=== PATIENT | female | born 1955 | race Caucasian/White ===

== ENCOUNTER → 2021-06-09 14:20 | Outpatient (BNVA) | payer OTHER, SELFPAY | PROVIDERS: Family Provider General Practice; PCP General Practice; Visit Provider Specialist | DX: G43.711 Chronic migraine without aura, intractable, with status migrainosus (principal) | CPT/HCPCS: 99204 ==

== ENCOUNTER → 2021-07-14 14:07 | Outpatient (BNVA) | payer OTHER, SELFPAY | PROVIDERS: Family Provider General Practice; PCP General Practice; Visit Provider Specialist | DX: G43.711 Chronic migraine without aura, intractable, with status migrainosus (principal); R00.1 Bradycardia, unspecified | CPT/HCPCS: 99213; 99214 ==

== ENCOUNTER 2021-08-07 11:07 | Observation (INO) | payer OTHER, SELFPAY ==
--- NOTE | 2021-08-07 11:25 | CTR_ITS ---
PROCEDURE INFORMATION: Exam: CT Head Without Contrast Exam date and time: 08/07/2021 11:25 AM Age: 65 years old Clinical indication: Pain; Headache TECHNIQUE: Imaging protocol: Computed tomography of the head without contrast. Radiation optimization: All CT scans at this facility use at least one of these dose optimization techniques: automated exposure control; mA and/or kV adjustment per patient size (includes targeted exams where dose is matched to clinical indication); or iterative reconstruction. COMPARISON: No relevant prior studies available. RADIATION DOSE METRICS: Total DLP (mGy-cm): 939.67 FINDINGS: Brain: There is volume loss and periventricular low density compatible with chronic small vessel disease changes. There is no acute hemorrhage, edema or mass effect. Basal ganglia calcifications are noted. There are small bifrontal benign hygromas. Cerebral ventricles: There is a cavum septum pellucidum/ cavum septum vergae variant. Paranasal sinuses: Visualized sinuses are unremarkable. No fluid levels. Mastoid air cells: Visualized mastoid air cells are well aerated. Bones/joints: Unremarkable. No acute fracture. Soft tissues: Unremarkable. CT/CT head wo con* [id number] IMPRESSION: No acute intracranial abnormality.
[2021-08-07 11:27] VITALS: BP 116/74; PULSE 80; RESP 16; TEMP 36.6; O2SAT 98; BMI 25.7
[2021-08-07 11:42] LABS: Hematocrit 42.8 % (37.0-47.0); Hemoglobin 14.1 g/dL (11.5-15.3); Mean Corpuscular HGB Conc 32.9 g/dL (30.0-36.0); Mean Corpuscular Hemoglobin 29.7 pg (28.0-34.0); Mean Corpuscular Volume 90.3 fl (81-99); Mean Platelet Volume 9.5 fL (7.4-10.4); Platelet Count 335 10^3/cmm (130-400); Red Blood Count 4.74 10^6/uL (4.1-5.3); Red Cell Distribution Width 11.6 % (12.1-15.1); White Blood Count 11.8 10^3/uL (4.0-10.0)
[2021-08-07 11:53] LABS: Absolute Eosinophils 0.1 10^3/cmm (0.0-0.7); Absolute Segmented Neutrophil 9.8 10/cmm (1.6-7.1); Band Neutrophils Absolute 0.1 10^3/cmm (0.0-1.2); Eosinophils 1 %; Lymphocytes 14 %; Lymphocytes Absolute 1.7 10^3/cmm (1.2-3.4); Monocytes Absolute 0.1 10^3/cmm (0.1-0.6); Segmented Neutrophils 83 %; Total Cells Counted 100 (0-100)
[2021-08-07 11:54] LABS: Absolute Neutrophil 9.9 10^3/cmm (1.4-6.5); Platelet Estimate Normal (Normal)
[2021-08-07 11:57] LABS: INR 0.95 (0.8-1.2)
[2021-08-07 11:58] LABS: Partial Thromboplastin Time 28.1 SECONDS (23.9-36.7)
[2021-08-07 12:09] VITALS: BP 116/74; PULSE 80; RESP 16; TEMP 36.6; O2SAT 98
[2021-08-07 12:14] LABS: Anion Gap 13.7 (5-19); Blood Urea Nitrogen 12 mg/dL (8-23); Calcium 9.3 mg/dL (8.5-10.5); Carbon Dioxide 26 mmol/L (22-29); Chloride 105 mmol/L (98-107); Glomerular Filtration Rate 72.4 mL/min (90-130); Glucose 109 mg/dL (65-115); Osmolality Calculated 290 mOsm/kg (285-295); Potassium 4.7 mmol/L (3.5-5.1); Sodium 140 mmol/L (136-145)
--- NOTE | 2021-08-07 12:23 | CTR_ITS ---
PROCEDURE INFORMATION: Exam: CT Angiography Head With Contrast, Arteriography Exam date and time: 08/07/2021 12:23 PM Age: 65 years old Clinical indication: Headache and vertigo; Additional info: Vertigo central? TECHNIQUE: Imaging protocol: Computed tomography angiography of the head with contrast. Exam focused on the arteries. 3D rendering (Not supervised by radiologist): MIP and/or 3D reconstructed images were created by the technologist. Radiation optimization: All CT scans at this facility use at least one of these dose optimization techniques: automated exposure control; mA and/or kV adjustment per patient size (includes targeted exams where dose is matched to clinical indication); or iterative reconstruction. Contrast material: OMNI 350; Contrast volume: 95 ml; Contrast route: INTRAVENOUS (IV); COMPARISON: CT head wo con* [id number] 08/07/2021 12:51 PM RADIATION DOSE METRICS: Total DLP (mGy-cm): 2203.25 FINDINGS: ANTERIOR CIRCULATION: Right internal carotid artery: Unremarkable. Intracranial segment is patent with no significant stenosis. No aneurysm. Right middle cerebral artery: Unremarkable. No occlusion or significant stenosis. No aneurysm. Right anterior cerebral artery: Unremarkable. No occlusion or significant stenosis. No aneurysm. Left internal carotid artery: Unremarkable. Intracranial segment is patent with no significant stenosis. No aneurysm. Left middle cerebral artery: Unremarkable. No occlusion or significant stenosis. No aneurysm. Left anterior cerebral artery: Unremarkable. No occlusion or significant stenosis. No aneurysm. POSTERIOR CIRCULATION: Right vertebral artery: Unremarkable. No occlusion or significant stenosis. No aneurysm. Left vertebral artery: Unremarkable. No occlusion or significant stenosis. No aneurysm. Basilar artery: Unremarkable. No occlusion or significant stenosis. No aneurysm. Right posterior cerebral artery: Unremarkable. No occlusion or significant stenosis. No aneurysm. Left posterior cerebral artery: Unremarkable. No occlusion or significant stenosis. No aneurysm. 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 Brain: No definite mass, mass effect, or midline shift. Cerebral ventricles: No ventriculomegaly. Bones/joints: Unremarkable. No acute fracture. Soft tissues: Unremarkable. PROCEDURE INFORMATION: Exam: CT Angiography Neck With Contrast Exam date and time: 08/07/2021 12:23 PM Age: 65 years old Clinical indication: Headache and vertigo; Additional info: Vertigo central? TECHNIQUE: Imaging protocol: Computed tomography angiography of the neck with contrast. 3D rendering (Not supervised by radiologist): MIP and/or 3D reconstructed images were created by the technologist. Radiation optimization: All CT scans at this facility use at least one of these dose optimization techniques: automated exposure control; mA and/or kV adjustment per patient size (includes targeted exams where dose is matched to clinical indication); or iterative reconstruction. Contrast material: OMNI 350; Contrast volume: 95 ml; Contrast route: INTRAVENOUS (IV); COMPARISON: CT head wo con* [id number] 08/07/2021 12:51 PM RADIATION DOSE METRICS: Total DLP (mGy-cm): 2203.25 FINDINGS: Right common carotid artery: No stenosis. No dissection or occlusion. Right internal carotid artery: No stenosis of the extracranial segment. No dissection or occlusion. Right external carotid artery: No occlusion or stenosis of the origin. Left common carotid artery: No stenosis. No dissection or occlusion. Left internal carotid artery: No stenosis of the extracranial segment. No dissection or occlusion. Left external carotid artery: No occlusion or stenosis of the origin. Right vertebral artery: No stenosis. No dissection or occlusion. Left vertebral artery: No stenosis. No dissection or occlusion. Soft tissues: Normal. No significant soft tissue swelling. Bones/joints: No acute fracture. CT/CT angio headneck* [id number] IMPRESSION: 1. No large vessel stenosis or occlusion. 2. 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 IMPRESSION: No stenosis or occlusion. REFERENCES: NASCET CRITERIA. The degree of internal carotid artery stenosis is based on NASCET criteria. Normal is no stenosis. Mild is less than 50% stenosis. Moderate is 50-69% stenosis. Severe is 70% to 99% stenosis. Total occlusion is no detectable patent lumen.
--- NOTE | 2021-08-07 12:43 | ED_ITS ---
HPI - General Adult General: Chief complaint: Dizziness Stated complaint: H/A DIZZY N/V Time Seen by Provider: 08/07/21 12:09 History of Present Illness: HPI narrative: Patient is a 65-year-old female with history of migraines followed by Dr. Arellano presenting to the emergency room with vertical sensation since 1500 yesterday afternoon. Patient says that symptoms started suddenly since then every time she tries to get up she has had room spinning sensation. Patient reports the sensation last for 5 minutes is associate with nausea vomiting and diaphoresis. Patient has no associated chest pain, dyspnea, abdominal complaints, focal neurological weakness, diplopia, dysarthria. She noted that her heart rate was beating fast yesterday when this occurred. Onset: 1500 Duration:ongoing Location:home Severity: moderate Review of Systems Narrative: Constitutional: No fever, no chills. HEENT: No vision changes CV: No chest pain, no palpitations PULM: no cough, no dyspnea. GI: No abdominal pain, no N/V/D. : No dysuria MSKEL: No muscle pain SKIN: No new rashes, no lesions. NEURO: No headache, no focal weakness. HEME: No visible bruises PSYCH: Normal mood PFSH ED PFSH: Social History History of recent travel: No Physical Exam Narrative: EXAM NARRATIVE: Head: Atraumatic Eyes: PERRL, conjunctiva without injection ENT: Mucous membrane moist NECK: Supple, ROM intact LUNGS: LCTAB, no crackles/rhonchi CV: RRR ABDOMEN: Soft, nontender in all quadrants EXTREMITY: Normal ROM SKIN: No rash or erythema NEURO: Mental status? Awake, alert, and oriented to self, year, month, location, and situation.? Following simple axial and appendicular commands.? Has appropriate fund of knowledge, comprehension, and insight.? Able to recall and understands pertinent aspects of medical history and current treatment status.? ? Language? Speech is fluent without word-finding difficulties.? Intact naming, expression, visual basic .net developer, and repetition.? ? Cranial nerves? 2,3,4,6: PERRL, EOMI with no nystagmus. 5: Intact sensation to light touch, symmetric? 7: Smile symmetrical, no facial droop.? 8: Hearing grossly intact.? 9,10: Normal palate movement.? 11: Normal strength in trapezius bilaterally 12: Tongue protrudes midline.? ? Motor examination? Normal bulk & tone. Strength as follows (R/L): Delts (5/5), Biceps (5/5), Triceps (5/5), Wrist ext (5/5), hip flexors (5/5), plantarflexors (5/5), dorsiflexors (5/5). Sensation? Light Touch: Grossly intact and equal in upper and lower extremities bilaterally? Romberg: Negative.? Distal joint position sense intact ? Coordination? Kqdwxb-[id number]-nyxy-finger movements intact without dysmetria or past-pointing.? Rapid fingertaps: preserved amplitude without decriment.? No tremor, myoclonus or truncal ataxia.? ? Gait/stance? Steady, normal narrow base gait with appropriate arm swing and turning.? Tandem gait without hesitation or loss of balance. PSYCH: Normal mood and affect Course Vital Signs: Vital signs: Vital Signs Temperature 97.9 F 08/07/21 12:09 Pulse Rate 80 08/07/21 12:09 Respiratory Rate 16 08/07/21 12:09 Blood Pressure 116/74 08/07/21 12:09 Pulse Oximetry 98 08/07/21 12:09 MDM - General Adult MDM Narrative: Medical decision making narrative: 65-year-old female with history of chronic migraine presenting to emergency room with concerns of vertigo symptoms this yesterday. On exam, patient has gait instability significant. +nausea vomiting. Status post IVF, Zofran, meclizine with minimal improvement in nausea and vertigo symptoms. CT brain/CTA head negative for any acute neurological finding. Will be admitted for gait instabilty and vomiting Lab Data: Labs: Lab Results 08/07/21 08/07/21 08/07/21 11:34 11:34 11:34 WBC 11.8 10^3/uL H 10 ^3/uL (4.0-10.0) RBC 4.74 10^6/uL 10^6 /uL (4.1-5.3) Hgb 14.1 g/dL g/dL (11.5-15.3) Hct 42.8 % % (37.0-47.0) MCV 90.3 fl fl (81-99) MCH 29.7 pg pg (28.0-34.0) MCHC 32.9 g/dL g/dL (30.0-36.0) RDW 11.6 % L % (12.1-15.1) Plt Count 335 10^3/cmm 10^3 /cmm (130-400) MPV 9.5 fL fL (7.4-10.4) Total Counted 100 (0-100) Atypical Lymphs % 0.0 % % (0-5) Absolute Neutrophi ls 9.9 10^3/cmm H 10 ^3/cmm (1.4-6.5) Segmented Neutroph ils 83 % % Abs Segm Neuts (Ma n) 9.8 10/cmm H 10/c mm (1.6-7.1) Band Neutrophils 1.0 % % Abs Band Neuts (Ma n) 0.1 10^3/cmm 10^3 /cmm (0.0-1.2) Absolute Lymphocyt es 1.7 10^3/cmm 10^3 /cmm (1.2-3.4) Lymphocytes (Manua l) 14 % % Monocytes (Manual) 1.0 % % Absolute Monocytes 0.1 10^3/cmm 10^3 /cmm (0.1-0.6) Eosinophils (Manua l) 1 % % Absolute Eosinophi ls 0.1 10^3/cmm 10^3 /cmm (0.0-0.7) Basophils (Manual) 0.0 % % Absolute Basophils 0.0 10^3/cmm 10^3 /cmm (0.0-0.2) Platelet Estimate Normal (Normal) PT 13.00 SECONDS SEC ONDS (12.1-14.9) INR 0.95 (0.8-1.2) APTT 28.1 SECONDS SECO NDS (23.9-36.7) Sodium 140 mmol/L mmol/L (136-145) Potassium 4.7 mmol/L mmol/L (3.5-5.1) Chloride 105 mmol/L mmol/L (98-107) Carbon Dioxide 26 mmol/L mmol/L (22-29) Anion Gap 13.7 (5-19) BUN 12 mg/dL mg/dL (8-23) Creatinine 0.8 mg/dL mg/dL (0.5-0.9) GFR Calculation 72.4 mL/min L mL/ min (90-130) Glucose 109 mg/dL mg/dL (65-115) Calculated Osmolal ity 290 mOsm/kg mOsm/ kg (285-295) Calcium 9.3 mg/dL mg/dL (8.5-10.5) Imaging Data^: Other Imaging: Radiologist's impression: [employer] [address]RS Scan ReportSigned Patient: Palma Islasit #: [id number]: 8Acct#:[id number]/Sex: 65 / FADM Date: 08/07/21Loc: ERRoom/Bed:Attending Dr: Ordering Provider/Ordering MD: Sandra Burgess MD Date of Service: 08/07/21 Procedure(s): CT angio headneck* [id number] Accession Number(s): [id number] Report Number: [id number] PROCEDURE INFORMATION: Exam: CT Angiography Head With Contrast, Arteriography Exam date and time: 08/07/2021 12:23 PM Age: 65 years old Clinical indication: Headache and vertigo; Additional info: Vertigo central? TECHNIQUE: Imaging protocol: Computed tomography angiography of the head with contrast. Exam focused on the arteries. 3D rendering (Not supervised by radiologist): MIP and/or 3D reconstructed images were created by the technologist. Radiation optimization: All CT scans at this facility use at least one of these dose optimization techniques: automated exposure control; mA and/or kV adjustment per patient size (includes targeted exams where dose is matched to clinical indication); or iterative reconstruction. Contrast material: OMNI 350; Contrast volume: 95 ml; Contrast route: INTRAVENOUS (IV); COMPARISON: CT head wo con* [id number] 08/07/2021 12:51 PM RADIATION DOSE METRICS: Total DLP (mGy-cm): 2203.25 FINDINGS: ANTERIOR CIRCULATION: Right internal carotid artery: Unremarkable. Intracranial segment is patent with no significant stenosis. No aneurysm. Right middle cerebral artery: Unremarkable. No occlusion or significant stenosis. No aneurysm. Right anterior cerebral artery: Unremarkable. No occlusion or significant stenosis. No aneurysm. Left internal carotid artery: Unremarkable. Intracranial segment is patent with no significant stenosis. No aneurysm. Left middle cerebral artery: Unremarkable. No occlusion or significant stenosis. No aneurysm. Left anterior cerebral artery: Unremarkable. No occlusion or significant stenosis. No aneurysm. POSTERIOR CIRCULATION: Right vertebral artery: Unremarkable. No occlusion or significant stenosis. No aneurysm. Left vertebral artery: Unremarkable. No occlusion or significant stenosis. No aneurysm. Basilar artery: Unremarkable. No occlusion or significant stenosis. No aneurysm. Right posterior cerebral artery: Unremarkable. No occlusion or significant stenosis. No aneurysm. Left posterior cerebral artery: Unremarkable. No occlusion or significant stenosis. No aneurysm. 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 Brain: No definite mass, mass effect, or midline shift. Cerebral ventricles: No ventriculomegaly. Bones/joints: Unremarkable. No acute fracture. Soft tissues: Unremarkable. PROCEDURE INFORMATION: Exam: CT Angiography Neck With Contrast Exam date and time: 08/07/2021 12:23 PM Age: 65 years old Clinical indication: Headache and vertigo; Additional info: Vertigo central? TECHNIQUE: Imaging protocol: Computed tomography angiography of the neck with contrast. 3D rendering (Not supervised by radiologist): MIP and/or 3D reconstructed images were created by the technologist. Radiation optimization: All CT scans at this facility use at least one of these dose optimization techniques: automated exposure control; mA and/or kV adjustment per patient size (includes targeted exams where dose is matched to clinical indication); or iterative reconstruction. Contrast material: OMNI 350; Contrast volume: 95 ml; Contrast route: INTRAVENOUS (IV); COMPARISON: CT head wo con* [id number] 08/07/2021 12:51 PM RADIATION DOSE METRICS: Total DLP (mGy-cm): 2203.25 FINDINGS: Right common carotid artery: No stenosis. No dissection or occlusion. Right internal carotid artery: No stenosis of the extracranial segment. No dissection or occlusion. Right external carotid artery: No occlusion or stenosis of the origin. Left common carotid artery: No stenosis. No dissection or occlusion. Left internal carotid artery: No stenosis of the extracranial segment. No dissection or occlusion. Left external carotid artery: No occlusion or stenosis of the origin. Right vertebral artery: No stenosis. No dissection or occlusion. Left vertebral artery: No stenosis. No dissection or occlusion. Soft tissues: Normal. No significant soft tissue swelling. Bones/joints: No acute fracture. CT/CT angio headneck* [id number] IMPRESSION: 1. No large vessel stenosis or occlusion. 2. 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 IMPRESSION: No stenosis or occlusion. REFERENCES: NASCET CRITERIA. The degree of internal carotid artery stenosis is based on NASCET criteria. Normal is no stenosis. Mild is less than 50% stenosis. Moderate is 50-69% stenosis. Severe is 70% to 99% stenosis. Total occlusion is no detectable patent lumen. 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
[2021-08-07] MEDS: ondansetron 2 mg/ML SDV 2 mL 4 MG IVP ×4 (13:04→22:33)
[2021-08-07] MEDS: iohexol 350 mg/mL 100 mL Btl IV (13:11)
[2021-08-07] MEDS: meclizine 25 mg tablet 50 MG PO (13:19)
[2021-08-07] MEDS: sodium chloride 0.9% 1,000 ML 999 ML IV (13:20)
[2021-08-07 18:00] VITALS: BP 122/78; PULSE 80; RESP 18; TEMP 36.7; O2SAT 98
[2021-08-07 18:10] VITALS: BP 122/78; PULSE 80; RESP 18; TEMP 36.7; O2SAT 98
[2021-08-07 18:26] VITALS: BP 128/74; PULSE 75; RESP 16; TEMP 36.8; O2SAT 94
--- NOTE | 2021-08-07 18:34 | P.HP_ITS ---
Providers/Chief Complaint Admitting Physician: Kofi Higginbotham MD Primary Care Provider: Barry Bee MD Chief Complaint: H/A DIZZY N/V History of Present Illness Palma Islas is a 65 year old female with past medical history of chronic migraine, came in with chief complaint of acute onset of vertigo ,since yesterday afternoon, she describes it as spinning of room whenever she tries to get up and move, each episode lasted around 5 minutes and is associated with nausea vomiting and diaphoresis. Patient is also complaining of one episode of syncope this morning lasting around a minute. Patient denies any , fever, cough, runny nose , ear pain , ear discharge , headache, any weakness in any body part, any abnormal sensations, double vision, difficulty with speech.She has never experinced any such episodes in past Upon arrival in the ER she was worked up for above mentioned complaint: Imaging studies CT head without contrast: No acute intracranial pathology CTA head and neck: No significant occlusion EKG: Review of Systems Const: Denies: fever(s), chills, body aches, change in appetite or diaphoresis Card: Denies: palpitations, edema, swelling of feet/ankles, dyspnea on exertion, orthopnea or leg pain with exertion Resp: Denies: dyspnea, productive cough, wheezing or pain on inspiration GI: Denies: abdominal pain, nausea, vomiting, diarrhea or constipation : Denies: flank pain Musc: Denies: back pain, extremity pain or extremity swelling Neuro: Denies: headache(s), difficulty walking or confusion Medications/Allergies Home Medications Medication Instructions Recorded Confirmed Last Taken Type tramadol 50 mg tablet 50 mg PO Q8H PRN 06/09/21 08/07/21 08/04/21 00:00 History Allergies Allergy/AdvReac Type Severity Reaction Status Date / Time No Known Allergies Allergy Verified 07/14/21 14:15 PFSH Acute PFSH: Social History History of recent travel: No Vitals/I&O/Wt Last Vital Signs Temp 98.0 F 08/07/21 18:10 Pulse 80 08/07/21 18:10 Resp 18 08/07/21 18:10 BP 122/78 08/07/21 18:10 Pulse Ox 98 08/07/21 18:10 08/07/21 08/07/21 08/07/21 06:59 14:59 22:59 Intake Total 1000 / 1000 Balance 1000 / 1000 Weight last 48 hrs Weight 78.925 kg Weight 76.657 kg Physical Exam Const: COMMON NORMALS: patient oriented x3 HENMT: COMMON NORMALS: normocephalic and atraumatic HEAD & SCALP: n ormocephalic and atraumatic Resp: COMMON NORMALS: clear to auscultation bilaterally EFFORT & INSPECTION: Yes symmetric chest movement AUSCULTATION: clear to auscultation bilaterally Cardio: COMMON NORMALS: regular rate, regular rhythm, S1 normal heart sound present, S2 normal heart sound present, No gallops present (Cardio), No murmurs present (Cardio), No rub (Cardio) and Peripheral pulses 2+ throughout RATE: regular rate RHYTHM: regular rhythm HEART SOUNDS: S1 normal heart sound present and S2 normal heart sound present PERIPHERAL PULSES: Peripheral pulses 2+ throughout GI: COMMON NORMALS: Normal to inspection, nondistended, normoactive bowel sounds present, Soft to palpation, non-tender, No hepatosplenomegaly present and no masses AUSCULTATION: Yes normoactive bowel sounds PALPATION: Yes Soft to palpation and Yes No hepatosplenomegaly present RECTAL EXAM: deferred Extremity: COMMON NORMALS: no clubbing, cyanosis or edema and no pedal edema Neuro: COMMON NORMALS: patient oriented x3 Data : 08/07/21 11:34 08/07/21 11:34 A&P Assessment and plan (1) Vertigo: Status: Acute (2) Syncope: Status: Acute (3) Unstable gait: Status: Acute (4) Vomiting: Status: Acute (5) Chronic migraine without aura, intractable, with status migrainosus: Status: Acute Additional A&P Information 65 year old female with past medical history of chronic migraine, came in with chief complaint of acute onset of vertigo ,since yesterday afternoon, she describes it as spinning of room whenever she tries to get up and move, each episode lasted around 5 minutes and is associated with nausea vomiting and diaphoresis. Patient denies any , fever, cough, runny nose , ear pain , ear discharge , headache, any weakness in any body part, any abnormal sensations, double vision, difficulty with speech, no hearing loss,ringing in ears. #Symptomatic vertigo: If symptoms persist will consider MRI brain to rule out any neurological etiology Meclizine 25 mg p.o. 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
[2021-08-07] MEDS: enoxaparin 40 mg/0.4 mL Syringe SUBCUT (18:41)
[2021-08-07] MEDS: sodium chloride 0.9% 1,000 ML 75 ML IV (18:42)
--- NOTE | 2021-08-07 19:14 | ECG_ITS ---
[facility] Test Date: 2021-08-08 Pat Name: Palma Islas Department: Room: 252 Gender: Female Machine Trimmer: : 1955 Requested By: Kofi Higginbotham Order Number: [id number] Graham MD: Dinesh Carter M.D. Measurements Intervals [place] Rate: 73 P: 48 [place]: 155 QRS: 25 QRSD: 92 T: 30 QT: 401 QTc: 444 Interpretive Statements SINUS RHYTHM No previous ECG available for comparison Electronically Signed On 08-08-2021 20:51:05 [employer]IL[employer] MECHANIC by Diensh Carter M.D. [id number]
[2021-08-07 20:00] VITALS: BP 146/79; PULSE 83; RESP 17; TEMP 37.3; O2SAT 94
[2021-08-07] MEDS: meclizine 25 mg tablet PO (20:31)
[2021-08-08] VITALS: BP 103/64; PULSE 88; RESP 17; TEMP 37.4; O2SAT 97
--- NOTE | 2021-08-08 | USCV_ITS ---
Palma Islas Age: 65 Gender: F : 1955 Exam Date: 08/08/2021 05:46 Ordering Phys: Kofi Higginbotham MD Technologist: Bettye Shanks [place] [facility] [place]: VERTIGO AND SYNCOPE BP: 103 / 64 HR: 62 Rhythm: Sinus Technical Quality: Fair MEASUREMENTS (Male / Female) Normal Values 2D ECHO LV Diastolic Diameter PLAX 4.6 cm 4.2 - 5.9 / 3.9 - 5.3 cm LV Systolic Diameter PLAX 3.2 cm LV Chamber Size 3.8 cm IVS Diastolic Thickness 1.3 cm 0.6 - 1.0 / 0.6 - 0.9 cm IVS Systolic Thickness 1.3 cm LVPW Diastolic Thickness 1.1 cm 0.6 - 1.0 / 0.6 - 0.9 cm LVPW Systolic Thickness 1.6 cm RV Chamber Size 2.4 cm LVOT Diameter 2.0 cm LV Ejection Fraction 2D Teich 58.3 % LV Ejection Fraction MOD 2C 62.8 % LV Ejection Fraction 2C AL 61.8 % LA Diameter 3.3 cm LA Width 3.2 cm LA Height 4.4 cm RA Width 3.3 cm RA Height 3.2 cm Aorta at Sinotubular Diameter 3.3 cm M-MODE Aortic Annulus Diameter 3.1 cm LA Ao Ratio MM 1.2 MV E Point Septal Separation 0.7 cm DOPPLER AV Peak Velocity 119.0 cm/s LVOT Peak Velocity 82.0 cm/s AV Area Cont Eq vti 2.2 cm squared AV Area Cont Eq pk 2.2 cm squared MV Area PHT 4.3 cm squared Mitral E to A Ratio 1.1 MV E' Velocity 52.0 cm/s Mitral E to MV E' Ratio 7.6 Mitral E to LV E' Lateral Ratio 7.5 Mitral E to LV E' Septal Ratio 7.7 TR Peak Velocity 198.6 cm/s TR Peak Gradient 15.8 mmHg TR Mean Velocity 154.3 cm/s TR Mean Gradient 10.4 mmHg TR Velocity Time Integral 63.9 cm TV Peak E Velocity 67.0 cm/s Right Atrial Pressure 3.0 mmHg Pulmonary Artery Systolic Pressu 18.8 mmHg PV Peak Velocity 45.0 cm/s RV Acceleration Time 0.2 s RV Ejection Time 0.4 s RV AcT/ET 0.4 FINDINGS Left Ventricle Normal left ventricular size and systolic function, EF 59 %. No regional wall motion abnormalities. Right Ventricle The right ventricle is normal in size and function. Right Atrium The right atrium is normal in size. Left Atrium The left atrium is normal in size. Mitral Valve Mild-moderate mitral valve regurgitation. Aortic Valve No gross abnormalities noted Tricuspid Valve Trace to mild tricuspid valve regurgitation. Normal pulmonary artery peak systolic pressure Pulmonic Valve No gross abnormalities noted Pericardium Normal pericardium without effusion. Aorta Normal ascending aorta dimension. CONCLUSIONS Normal left ventricular size and systolic function, EF 59 %. No regional wall motion abnormalities. Mild-moderate mitral valve regurgitation. Trace to mild tricuspid valve regurgitation. Normal pulmonary artery peak systolic pressure. There is no pericardial effusion. There are no intracardiac masses. No previous study is available for comparison. Dr Dinesh Carter MD FAC (Electronically Signed) Final Date: 08 August 2021 14:13 S
[2021-08-08] MEDS: ondansetron 2 mg/ML SDV 2 mL 4 MG IVP ×3 (02:17→10:44)
[2021-08-08 04:00] VITALS: BP 116/68; PULSE 81; RESP 17; TEMP 37.8; O2SAT 94
[2021-08-08 06:07] LABS: Basophils % 0.3 %; Eosinophils % 0.7 %; Hematocrit 36.4 % (37.0-47.0); Hemoglobin 11.8 g/dL (11.5-15.3); Lymphocytes # 2.3 10^3/uL (0.8-4.8); Lymphocytes % 39.6 %; Mean Corpuscular HGB Conc 32.4 g/dL (30.0-36.0); Mean Corpuscular Hemoglobin 29.9 pg (28.0-34.0); Mean Corpuscular Volume 92.2 fl (81-99); Mean Platelet Volume 10.4 fL (7.4-10.4); Monocytes # 0.5 10^3/uL (0.2-0.9); Neutrophils # 2.89 10^3/uL (1.8-7.7); Neutrophils % 50.2 %; Nucleated Red Blood Cells % 0 %; Platelet Count 300 10^3/cmm (130-400); Red Blood Count 3.95 10^6/uL (4.1-5.3); Red Cell Distribution Width 11.6 % (12.1-15.1); White Blood Count 5.8 10^3/uL (4.0-10.0)
[2021-08-08 06:32] LABS: Alanine Aminotransferase 9 U/L (0-33); Albumin Level 3.7 g/dL (3.5-5.2); Alkaline Phosphatase 64 IU/L (35-105); Anion Gap 13.8 (5-19); Aspartate Amino Transferase 10 U/L (0-32); Blood Urea Nitrogen 12 mg/dL (8-23); Calcium 8.1 mg/dL (8.5-10.5); Carbon Dioxide 22 mmol/L (22-29); Chloride 109 mmol/L (98-107); Globulin 1.7 g/dL (1.3-4.6); Glomerular Filtration Rate 84.5 mL/min (90-130); Glucose 78 mg/dL (65-115); Osmolality Calculated 291 mOsm/kg (285-295); Potassium 3.8 mmol/L (3.5-5.1); Sodium 141 mmol/L (136-145); Total Bilirubin 0.3 mg/dL (0.15-1.2); Total Protein 5.4 g/dL (6.6-8.7)
[2021-08-08 08:00] VITALS: BP 113/76; BP 123/77; BP 124/72; PULSE 82; PULSE 84; PULSE 96
[2021-08-08] MEDS: sodium chloride 0.9% 1,000 ML 75 ML IV (08:04)
[2021-08-08] MEDS: meclizine 25 mg tablet PO (08:04)
--- NOTE | 2021-08-08 08:22 | PC.NURSE ---
commercial loan underwriter entered room to do MRI screening. patient refusing MRI. She said no one had even checked me for an inner ear infection. Dr Calivllo notified.
--- NOTE | 2021-08-08 09:39 | PC.CHAP ---
Pastoral Care Encounter/Spiritual Assessment Type of Contact [x] Declined teacher's assistant visit [] Patient/Family/Request visit [] Outpatient visit [] Follow-up visit [] Physician referral [] Code/Alert [x] Routine visit [] Staff referral [] Actively dying [] Patient sleeping [] Family support [] [] Out of room [] Palliative care [] [] Receiving care in room [] Pre-surgical visit [] Trauma [] Long length of stay [] ICU visit [] Other: Relational/Emotional Strength [x] Patient feels connected with others/family/visitors/staff [] Distress [] Loneliness/isolation [] Abandonment Spirituality of Patient [] Person of Kaitlyn [] Attends Anglican of their Kaitlyn [] Believes in Prayer [] Reads Bible or Amish materials [] There are Spiritual issues to be addressed First Aid Instructor Interventions [] Prayer [] Active listening [] Non-anxious presence [] Spiritual/emotional support [] Crisis/trauma care [] Spiritual counseling [] Bereavement support [] Provided bereavement packet [] Provided Bible/devotional materials [] Provided toy/stuffed animal, coloring book to patient or family member [] Provided Communion [] Anointing/[place] [] Salvation [x] Completed spiritual assessment [] Other: Impact on Illness or Injury [] Angry [] Fearful [] Anxious [] Often cries [] Exhaustion [] Unable to work [] Unable to attend uatsdin [] Unable to walk/stand [] Unable to read [] Unable to drive [] Unable to eat/drink [] Unable to sleep [] Unable to be with family [] Patient intubated [] Other: Summary Time spent with patient
[2021-08-08 12:00] VITALS: BP 134/85; BP 147/82; BP 160/79; PULSE 68; PULSE 77; PULSE 84
[2021-08-08 13:43] LABS: Protein Urine Neg (Negative); Specific Gravity, Urine 1.015 (1.005-1.030); Urine Appearance SL Hazy (CLEAR); Urine Color Straw (Yellow); pH Urine 6.5 (5-7)
[2021-08-08 13:44] LABS: Add Urine Microscopic? YES; Bacteria Urine TRACE /hpf; Bilirubin Urine Neg (Negative); Blood Urine 2+ (Negative); Glucose Urine UA Norm (Normal); Ketones Urine Negative (Negative); Leukocyte Esterase Urine Trace (Negative); Nitrate Urine Negative (Negative); Urobilinogen Urine Norm (Negative)
[2021-08-08 13:45] LABS: Add Urine Culture? No
--- NOTE | 2021-08-08 14:25 | PC.NURSE ---
moved patient from 252-1 to 255-1.
--- NOTE | 2021-08-08 14:39 | PM.DCS ---
Discharge Providers Date of Admission: 08/07/21 13:39 Date of Discharge: August 08, 2021 Attending Provider at Admission: Kofi Higginbotham MD Attending Provider at Discharge: Ben Calvillo MD Primary Care Provider: Barry Bee MD Diagnoses at Discharge Discharge Diagnosis (1) Vertigo: Status: Acute (2) Syncope: Status: Acute (3) Unstable gait: Status: Acute (4) Vomiting: Status: Acute (5) Chronic migraine without aura, intractable, with status migrainosus: Status: Acute Reason for Visit Reason for Visit: H/A DIZZY N/V Hospital Course Hospital Course This is a 65-year-old female with a past medical history of chronic migraines, who presents to [facility] due to vertigo Patient was admitted to [facility] for vertigo, no focal neurologic deficits, no chest pain complaints, no palpitations, CT of the head no acute intracranial pathology, CTA of the head and neck no significant occlusion, EKG shows sinus rhythm, echocardiogram showed an EF of 59%, no regional wall motion abnormalities, mild to moderate mitral valve regurg. Patient symptomatology improved with Saba maneuver and meclizine. Likely patient symptomatology was related to benign positional vertigo. She saw physical therapy as inpatient, was taught maneuvers to help with symptomatology. Will be discharged on instructions for maneuvers, meclizine, and follow-up with primary care provider as outpatient. If her symptomatology were to persist, follow-up with neurology and or consider MRI of the brain. Physical Exam Const: COMMON NORMALS: no acute distress and patient oriented x3 Resp: COMMON NORMALS: normal respiratory effort, No retractions, No use of accessory muscles and clear to auscultation bilaterally AUSCULTATION: clear to auscultation bilaterally Cardio: COMMON NORMALS: regular rate, regular rhythm, S1 normal heart sound present and S2 normal heart sound present RATE: regular rate RHYTHM: regular rhythm HEART SOUNDS: S1 normal heart sound present and S2 normal heart sound present GI: COMMON NORMALS: Normal to inspection, nondistended, normoactive bowel sounds present and Soft to palpation PALPATION: Yes Soft to palpation Extremity: COMMON NORMALS: no pedal edema Neuro: COMMON NORMALS: patient oriented x3 Psych: COMMON NORMALS: mental status grossly normal Discharge Data Data Completed and Pending: Completed Studies During Hospitalization Category Date Time Status CT angio headneck * [id number] Urge nt Cat Scan 08/07/21 12:[address] head wo con* [id number] Urgent Cat Scan 08/07/21 11:25 Completed CV. echo complete * [id number] Routine Ultrasound 08/08/21 Completed Pending at discharge Category Date Time Status Urinalysis Routin e Lab 08/08/21 05:55 Ordered Labs from last 24 hours 08/08/21 08/08/21 08/08/21 Unknown 04:20 04:20 WBC 5.8 RBC 3.95 L Hgb 11.8 Hct 36.4 L MCV 92.2 MCH 29.9 MCHC 32.4 RDW 11.6 L Plt Count 300 MPV 10.4 Neut % (Auto) 50.2 Lymph % (Auto) 39.6 [place] % (Auto) 9.0 Eos % (Auto) 0.7 Baso % (Auto) 0.3 Neut # (Auto) 2.89 Lymph # (Auto) 2.3 [place] # (Auto) 0.5 Eos # (Auto) 0.0 Baso # (Auto) 0.0 Nucleated RBC % (a uto) 0 Nucleated RBCs # 0.0 Sodium 141 Potassium 3.8 Chloride 109 H Carbon Dioxide 22 Anion Gap 13.8 BUN 12 Creatinine 0.7 GFR Calculation 84.5 L Glucose 78 Calculated Osmolal ity 291 Calcium 8.1 L Magnesium 2.0 Total Bilirubin 0.3 AST 10 ALT 9 Alkaline Phosphata se 64 Total Protein 5.4 L Albumin 3.7 Globulin 1.7 Urine Color Straw Urine Appearance Sl hazy Urine pH 6.5 Ur Specific Gravit y 1.015 Urine Protein Neg Urine Glucose (UA) Norm Urine Ketones Negative Urine Blood 2+ H Urine Nitrate Negative Urine Bilirubin Neg Urine Urobilinogen Norm Ur Leukocyte Vivienne ase Trace H Urine RBC 5-10 H Urine WBC 5-10 H Ur Squamous Epith Cells 5-10 H Amorphous Sediment Not Reportable Urine Bacteria Trace Vitals: Last Vital Signs Temp 100.1 F H 08/08/21 04:00 Pulse 84 08/08/21 12:00 Resp 17 08/08/21 04:00 BP 134/85 08/08/21 12:00 Pulse Ox 94 08/08/21 04:00 Discharge Plan Discharge Patient Disposition: Home Condition: Stable Prescriptions: New meclizine 25 mg Tablet 25 mg PO TID PRN (Reason: dizzyness) 15 Days Qty: 45 RF: 0 Continued tramadol 50 mg tablet 50 mg PO Q8H PRN (Reason: Pain) RF: 0 Discharge Orders: Discharge Order (Routine); Ordered 08/08/21 Ordered By: Ben Calvillo Referrals: Barry Bee MD [Primary Care Provider] - Discharge Diet: Cardiac Discharge Activity: Resume usual activity Patient Instructions: Opioid Safety Activity Restrictions/Additional Instructions: -Please continue maneuvers shown to you for benign positional vertigo, meclizine as needed for vertigo please do not drive or operate heavy machinery while taking meclizine -Follow-up with primary care provider in 2 weeks -If you continue to have lightheadedness or dizziness or vertigo please follow-up with primary care provider for consideration of MRI Discharge Attestations Time Spent in Discharge Care*: less than 30 min Quality Metrics Clinical Quality Measures During this hospital stay, did patient experience: None Coding Level of Care Code Acute Chg FW DC note Diagnoses Vertigo R42 Syncope R55 Unstable gait R26.81 Vomiting R11.10 Chronic migraine without aura, intractable, with status migrainosus G43.711
--- NOTE | 2021-08-08 15:22 | PC.NURSE ---
discharge instructions given to patient and patient verbalized understanding of instructions. patient taken to private vehicle via wheelchair by appeals writer.
[2021-08-08 15:23] VITALS: BP 116/68; PULSE 81; RESP 17; TEMP 37.8; O2SAT 94
== END 2021-08-08 15:24 | disposition home or self-care (01) ==
LOC: ER 12:43 → MEDSURG 18:21
PROVIDERS: Admitting Provider Internal Medicine; Emergency Provider Emergency Medicine; PCP General Practice; Visit Provider Family Medicine
DX: H81.10 Benign paroxysmal vertigo, unspecified ear (principal); R55 Syncope and collapse; R26.81 Unsteadiness on feet; R11.10 Vomiting, unspecified; G43.711 Chronic migraine without aura, intractable, with status migrainosus
CPT/HCPCS: 36415; 70450; 70496; 70498; 80048; 80053; 81001; 83735; 85007; 85025; 85027; 85610; 85730; 93005; 93306; 96361; 96372; 96374; 96376; 97110; 99285; G0378; J1650; J2405; J7030; J8597; Q9967

== ENCOUNTER → 2023-08-15 13:51 | Outpatient (BNVA) | payer MEDICARE, OTHER, SELFPAY | PROVIDERS: PCP General Practice; Visit Provider Nurse Practitioner Family | DX: Z00.00 Encounter for general adult medical examination without abnormal findings (principal); G45.0 Vertebro-basilar artery syndrome; J30.2 Other seasonal allergic rhinitis; Z71.89 Other specified counseling | CPT/HCPCS: 80053; 80061; 85025 ==

== ENCOUNTER 2023-10-08 12:44 | Outpatient (CLI) | payer MEDICARE, OTHER, SELFPAY ==
--- NOTE | 2023-10-08 12:59 | MM_ITS ---
WS: [id number] BILATERAL 3D TOMOSYNTHESIS DIGITAL SCREENING MAMMOGRAPHY WITH CAD CLINICAL INFORMATION: screening HISTORY: Screening mammogram. No current complaints. COMPARISON: 2018 TECHNIQUE: Bilateral CC and MLO views. FINDINGS: Bilateral breast implants appear intact with capsular calcifications unchanged. Scattered fibroglandular densities bilaterally. No suspicious focal mass, asymmetry, calcifications, or architectural distortion. No evidence of malignancy. Vascular calcification. IMPRESSION: MM/[place] [id number] BI-RADS: 2-Benign FOLLOW UP: 1 Year Follow-up Recommend return to annual screening mammography.
--- NOTE | 2023-10-08 13:00 | XR_ITS ---
WS: [id number] SCREENING DEXA SCAN [employer] CLINICAL INFORMATION: screening COMPARISON: None. FINDINGS: The L1-L4 bone mineral density measures 0.964 g/cm2. This corresponds to a T score score of -1.8 and Z score of -0.8. Left femoral neck bone mineral density measures 0.829 g/cm2. This corresponds to a T score of -1.4 an d Z score of -0.6. Right femoral neck bone mineral density measures 0.848 g/cm2. This corresponds to a T score -1.3of an d Z score of -0.5. Mean femoral neck bone mineral density measures 0.839 g/cm2. This corresponds to a T score of -1.3 an d Z score of -0.6. IMPRESSION: Osteopenia lumbar spine. Osteopenia femoral necks. Patient's FRAX calculated 10 year probability for major osteoporotic fracture is 9.7% and osteoporoti c hip fracture is 1.3%.
== END 2023-10-08 12:45 | disposition home or self-care (01) ==
LOC: RAD 12:44
PROVIDERS: PCP General Practice; Visit Provider Nurse Practitioner Family
DX: Z12.31 Encounter for screening mammogram for malignant neoplasm of breast (principal); Z00.00 Encounter for general adult medical examination without abnormal findings; Z13.820 Encounter for screening for osteoporosis; M19.90 Unspecified osteoarthritis, unspecified site
CPT/HCPCS: 77063; 77067; 77080

== ENCOUNTER → 2023-10-17 14:39 | Outpatient (BNVA) | payer MEDICARE, OTHER, SELFPAY | PROVIDERS: PCP General Practice; Visit Provider Nurse Practitioner Family | DX: J18.9 Pneumonia, unspecified organism (principal); J40 Bronchitis, not specified as acute or chronic | CPT/HCPCS: 71046; 85025 ==

== ENCOUNTER → 2023-10-19 15:12 | Outpatient (BNVA) | payer MEDICARE, OTHER, SELFPAY | PROVIDERS: PCP General Practice; Visit Provider Nurse Practitioner Family | DX: R06.02 Shortness of breath (principal) | CPT/HCPCS: 71046 ==

== ENCOUNTER → 2023-11-13 07:47 | Outpatient (BNVA) | payer MEDICARE, OTHER, SELFPAY | PROVIDERS: PCP General Practice; Visit Provider Specialist | DX: G43.711 Chronic migraine without aura, intractable, with status migrainosus (principal) | CPT/HCPCS: 99213 ==

== ENCOUNTER → 2023-12-13 09:45 | Outpatient (BNVA) | payer MEDICARE, OTHER, SELFPAY | PROVIDERS: PCP General Practice; Visit Provider General Practice | DX: M17.11 Unilateral primary osteoarthritis, right knee (principal) | CPT/HCPCS: 73562 ==

== ENCOUNTER 2023-12-21 10:57 | Outpatient (CLI) | payer MEDICARE, OTHER, SELFPAY ==
--- NOTE | 2023-12-21 11:00 | CT_ITS ---
WS: [id number] CT chest w con* [id number] HISTORY: Shortness of breath, abnormal x-ray, pulmonary nodule TECHNIQUE: Axial imaging performed through the thorax. Coronal and sagittal reformats are submitted. All CT scans at [facility] use at least one of these dose optimization techniques: automated exposure control; mA and/or kV adjustment per patient size (includes targeted exams where dose is mat ched to clinical indication); or iterative reconstruction. CONTRAST: Omnipaque 350; 100 mL IV. DLP: 366.28 mGy.cm COMPARISON: Chest radiograph 10/19/2023 Lungs and central airway: No pulmonary mass or nodule. There are a few scattered very small areas of groundglass attenuation in the RIGHT upper and RIGHT lower lobe. Benign granuloma LEFT upper lobe. Pleura: Normal. No pleural effusion. Heart and pericardium: Normal size heart with no pericardial effusion. Mediastinum and brittanie: No mediastinum or hilar adenopathy. Vessels: Atherosclerosis aorta. Normal pulmonary artery. Chest wall and lower neck: Bilateral breast implants. Upper abdomen: Small hiatal hernia. No adrenal mass. Osseous structures: Thoracolumbar spondylosis. IMPRESSION: 1. No pulmonary mass or pneumonia. 2. Subsegmental areas of groundglass attenuation in the RIGHT upper and RIGHT lower lobes. Most like ly due to pneumonitis. 3. No mediastinal or hilar adenopathy. 4. Bilateral breast implants.
[2023-12-21 11:26] LABS: Blood Urea Nitrogen 9 mg/dL (8-23); Glomerular Filtration Rate 55.5 mL/min (90-130)
[2023-12-21] MEDS: iohexol 350 mg/mL 500 mL Btl (per mL) IV (11:35)
== END 2023-12-21 10:58 | disposition home or self-care (01) ==
LOC: RAD 10:57
PROVIDERS: PCP General Practice; Visit Provider Nurse Practitioner Family
DX: R91.1 Solitary pulmonary nodule (principal); R06.02 Shortness of breath; R93.89 Abnormal findings on diagnostic imaging of other specified body structures
CPT/HCPCS: 71260; 82565; 84520; Q9967

== ENCOUNTER → 2024-01-10 10:26 | Outpatient (BNVA) | payer MEDICARE, OTHER, SELFPAY | PROVIDERS: PCP General Practice; Visit Provider Specialist | DX: G43.711 Chronic migraine without aura, intractable, with status migrainosus (principal) | CPT/HCPCS: 64615; 99214; J0585 ==

== ENCOUNTER → 2024-02-20 15:34 | Outpatient (BNVA) | payer MEDICARE, OTHER, SELFPAY | PROVIDERS: PCP General Practice; Visit Provider Specialist | DX: G45.9 Transient cerebral ischemic attack, unspecified (principal); R03.0 Elevated blood-pressure reading, without diagnosis of hypertension; G24.3 Spasmodic torticollis; G43.711 Chronic migraine without aura, intractable, with status migrainosus; M54.2 Cervicalgia | CPT/HCPCS: 99214; 99215 ==

== ENCOUNTER 2024-03-28 13:01 | Outpatient (CLI) | payer MEDICARE, OTHER, SELFPAY ==
--- NOTE | 2024-03-28 13:00 | MR_ITS ---
WS: [id number] MRI BRAIN WITHOUT CONTRAST HISTORY: G45.9 - Transient cerebral ischemic attack, unspecified COMPARISON: None available. TECHNIQUE: Diffusion imaging, multiplanar T1, T2 and FLAIR imaging obtained. Normal diffusion imaging. There are a few scattered T2 and FLAIR signal hyperintensities within this supratentorial white matter from small vessel disease. No prior infarct. No significant volume loss o r atrophy. Normal hippocampal formation. No remote or acute infarcts are volume loss. Ventricles and extra-axial spaces are normal. 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 No inferior displacement of cerebellar tonsils. The sella turcica and pituitary gland are unremarkabl e. Dural venous sinuses and [place] demonstrate no abnormality on this unenhanced studies. Paranasal sinuses: Clear. Mastoid air cells: Normal. Calvarium and scalp: Intact. MR/MR head wo con* [id number] IMPRESSION: 1. No diffusion abnormality large territory infarct. 2. No significant volume loss. 3. Normal hippocampal formations. 4. Mild small vessel ischemic changes.
--- NOTE | 2024-03-28 13:45 | MR_ITS ---
WS: [id number] MRA ANGIOGRAPHY [place] HISTORY: R51.9 - Headache, unspecified COMPARISON: 08/07/2021 CTA TECHNIQUE: 3-D MR angiography is performed of the [place]. All images are reviewed including source images. Distal vertebral and basilar arteries are intact with no significant stenosis or plaque. LEFT vertebr al artery is dominant. Posterior cerebral arteries are normal course and caliber. Posterior communica ting arteries are both patent but small caliber. Intracranial portion of the internal carotid arteries are normal course and caliber. No significant a therosclerosis, stenosis or aneurysm identified. Middle and anterior cerebral arteries are both paten t with no significant disease. Anterior communicating artery is also normal. 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 MR/MR angio head wo con [id number] IMPRESSION: Normal MRA [place].
--- NOTE | 2024-03-28 14:00 | MR_ITS ---
WS: [id number] MRI CERVICAL SPINE NONCONTRAST HISTORY: G24.3 - Spasmodic torticollis COMPARISON: None available. Technique: Multiplanar, multisequence noncontrast imaging of the cervical spine. Straightening of the normal cervical lordosis with slight reversal at C5. Disc spaces are mildly narr owed and desiccated. Signal within the cervical cord is normal. Visualized posterior fossa is unremarkable. Craniocervical junction, C1 and C2 relationship, odontoid process and soft tissues are normal. C2-C3: Normal. C3-C4: Normal. C4-C5: Mild annular disc bulging and osteophytic ridging. Small LEFT paracentral disc protrusion. Mil d facet arthritis. Mild central and bilateral foraminal stenosis. C5-C6: Osteophytic ridging with annular disc bulging. Disc osteophyte in the foramina causing moderat e to severe stenosis. C6-C7: Diffuse annular disc bulge with osteophytic ridging. Small central disc protrusion. Mild centr al with moderate to severe bilateral foraminal stenosis, RIGHT greater than LEFT. C7-T1: Normal. Additional small central disc protrusions at T1-2 and T2-3. MR/MR cervical spin wo con* [id number] IMPRESSION: 1. Mild straightening of the normal cervical lordosis. 2. C5-6: Mild central stenosis with moderate to severe bilateral foraminal vaibhav nosis, RIGHT greater than LEFT. 3. C6-7: Mild central with moderate to severe bilateral foraminal stenosis, RI GHT greater than LEFT. 4. C4-5: Mild central and bilateral foraminal stenosis.
== END 2024-03-28 13:02 | disposition home or self-care (01) ==
LOC: RAD 13:02
PROVIDERS: PCP General Practice; Visit Provider Specialist
DX: G45.9 Transient cerebral ischemic attack, unspecified (principal); I67.89 Other cerebrovascular disease; R51.9 Headache, unspecified; G24.3 Spasmodic torticollis; M50.323 Other cervical disc degeneration at C6-C7 level; M48.02 Spinal stenosis, cervical region; M47.892 Other spondylosis, cervical region; M25.78 Osteophyte, vertebrae
CPT/HCPCS: 70544; 70551; 72141

== ENCOUNTER → 2024-04-15 11:29 | Outpatient (BNVA) | payer MEDICARE, OTHER, SELFPAY | PROVIDERS: PCP General Practice; Visit Provider Nurse Practitioner Family | DX: M85.80 Other specified disorders of bone density and structure, unspecified site (principal); R53.83 Other fatigue; G45.9 Transient cerebral ischemic attack, unspecified | CPT/HCPCS: 80053; 80061; 82306; 82607; 82746; 85025; 85651; 86038; 86140; 86200; 86431 ==

== ENCOUNTER → 2024-04-24 09:45 | Outpatient (BNVA) | payer MEDICARE, OTHER, SELFPAY | PROVIDERS: PCP General Practice; Visit Provider Specialist | DX: G43.711 Chronic migraine without aura, intractable, with status migrainosus (principal); G45.9 Transient cerebral ischemic attack, unspecified; G45.0 Vertebro-basilar artery syndrome; M60.9 Myositis, unspecified; R55 Syncope and collapse; R76.8 Other specified abnormal immunological findings in serum; M47.812 Spondylosis without myelopathy or radiculopathy, cervical region | CPT/HCPCS: 36415; 64615; 82550; 85651; 86160; 86162; 86235; 86255; 86376; 86431; 99215; J0585 ==

== ENCOUNTER → 2024-08-01 09:45 | Outpatient (BNVA) | payer MEDICARE, OTHER, SELFPAY | PROVIDERS: PCP General Practice; Visit Provider Specialist | DX: G43.711 Chronic migraine without aura, intractable, with status migrainosus (principal); G45.0 Vertebro-basilar artery syndrome; R55 Syncope and collapse; R76.8 Other specified abnormal immunological findings in serum; M47.812 Spondylosis without myelopathy or radiculopathy, cervical region | CPT/HCPCS: 64615; 99213; J0585 ==

== ENCOUNTER → 2024-10-24 09:46 | Outpatient (BNVA) | payer MEDICARE, OTHER, SELFPAY | PROVIDERS: PCP General Practice; Visit Provider Specialist | DX: G43.711 Chronic migraine without aura, intractable, with status migrainosus (principal) | CPT/HCPCS: 64615; J0585 ==

== ENCOUNTER 2024-12-25 05:00 | Outpatient (RCR) | payer MEDICARE, OTHER, SELFPAY | END 2025-01-24 23:59 | disposition home or self-care (01) | LOC: TPT 05:00 | PROVIDERS: PCP General Practice; Visit Provider Specialist | DX: R42 Dizziness and giddiness (principal); R55 Syncope and collapse | CPT/HCPCS: 97161 ==

== ENCOUNTER → 2025-01-07 11:45 | Outpatient (BNVA) | payer MEDICARE, OTHER, SELFPAY | PROVIDERS: PCP General Practice; Visit Provider Specialist | DX: G43.711 Chronic migraine without aura, intractable, with status migrainosus (principal); G45.0 Vertebro-basilar artery syndrome; R76.8 Other specified abnormal immunological findings in serum; R55 Syncope and collapse; R42 Dizziness and giddiness; R29.90 Unspecified symptoms and signs involving the nervous system; M47.812 Spondylosis without myelopathy or radiculopathy, cervical region | CPT/HCPCS: 36415; 80053; 82607; 85025; 86160; 86162; 86235; 86255; 86376; 99215 ==

== ENCOUNTER → 2025-02-16 14:55 | Outpatient (BNVA) | payer MEDICARE, OTHER, SELFPAY | PROVIDERS: PCP General Practice; Visit Provider Specialist | DX: G43.711 Chronic migraine without aura, intractable, with status migrainosus (principal) | CPT/HCPCS: 64615; 99213; J0585; J9999 ==

== ENCOUNTER → 2025-03-26 13:13 | Outpatient (BNVA) | payer MEDICARE, OTHER, SELFPAY | PROVIDERS: PCP General Practice; Visit Provider Nurse Practitioner Family | DX: R30.0 Dysuria (principal) | CPT/HCPCS: 81000 ==

== ENCOUNTER → 2025-06-04 14:02 | Outpatient (BNVA) | payer MEDICARE, OTHER, SELFPAY | PROVIDERS: PCP General Practice; Visit Provider Specialist | DX: G43.711 Chronic migraine without aura, intractable, with status migrainosus (principal); R42 Dizziness and giddiness; G45.0 Vertebro-basilar artery syndrome; R55 Syncope and collapse; R76.89 Other specified abnormal immunological findings in serum; M47.812 Spondylosis without myelopathy or radiculopathy, cervical region | CPT/HCPCS: 64615; J0585; J9999 ==